=== PATIENT | female | born 1960 | race African-American/Black ===

== ENCOUNTER → 2016-10-03 | Outpatient (CLI) | payer OTHER, MEDICAID ==
[2016-10-03 10:04] LABS: Urine RBC None Seen /hpf (0 - 4)
[2016-10-03 10:11] LABS: Basophils # (auto) 0 uL; Basophils % (auto) 0.3 % (0.0-2.0); DEFINITIVE VIEW TRANSMISSION; Eosinophils # (auto) 0.2 uL; Hematocrit 46.6 % (36.0-46.0); Hemoglobin 14.6 g/dL (12.2-16.2); Lymphocytes % (auto) 27.4 % (10.0-50.0); Mean Corpuscular Hemoglobin 26.4 pg (28.0-32.0); Mean Corpuscular Hgb Conc. 31.3 g/dL (32.0-36.0); Mean Corpuscular Volume 84.4 fL (80.0-100.0); Mean Platelet Volume 9.9 fL (7.4-10.4); Monocytes # (auto) 0.4 uL; Monocytes % (auto) 5.2 % (0.0-12.0); Neutrophils # (auto) 4.8 uL; Neutrophils % (auto) 64.1 % (37.0-80.0); Platelet Count (auto) 193 10^3/uL (140-450); Red Cell Distribution Width 14.7 % (11.6-16.0); White Blood Cell 7.4 10^3/uL (4.4-10.8)
[2016-10-03 10:53] LABS: Urine Bilirubin Negative (Negative); Urine Blood Negative /uL (Negative); Urine Color Yellow (Yellow); Urine Ketone Negative (Negative); Urine Nitrite Negative (Negative); Urine Squamous Epithelial Cell FEW /hpf (<5); Urine Urobilinogen Normal (Negative); Urine pH 6.5 (5.0-8.0)
[2016-10-03 10:58] LABS: Urine Glucose 4+ mg/dL (Normal)
[2016-10-03 13:54] LABS: Potassium 4.3 mmol/L (3.5-5.1)
[2016-10-03 14:12] LABS: Albumin 3.6 g/dL (3.4-5.0); BUN/Creatinine Ratio 10.7
[2016-10-03 14:40] LABS: Bilirubin, Total 0.6 mg/dL (0.2-1.0); Total Protein 7.4 g/dL (6.4-8.2)
== END | disposition home or self-care (01) ==
LOC: LAB 08:58
DX: I87.9 Disorder of vein, unspecified (principal)
CPT/HCPCS: 36415; 80053; 80061; 81001; 82306; 85025

== ENCOUNTER → 2019-11-19 | Outpatient (CLI) | payer OTHER, MEDICAID | END | disposition home or self-care (01) | LOC: Rad HDHVI 14:43 | PROVIDERS: ATTEND Internal Medicine | DX: I36.1 Nonrheumatic tricuspid (valve) insufficiency (principal) | CPT/HCPCS: 93306 ==

== ENCOUNTER → 2019-11-23 | Outpatient (CLI) | payer OTHER, MEDICAID ==
[~2019-11-23] VITALS: Ht 170.2 cm; Wt 124.7 kg
[~2019-11-23] MED LIST: ADENOSINE 105 MG in GIVE UN-DILUTED 0 ML IV ONE; ADENOSINE 90 MG/30 ML INJ IV ONE
== END | disposition home or self-care (01) ==
LOC: Rad HDHVI 08:29
PROVIDERS: ATTEND Internal Medicine Cardiovascular Disease
DX: I36.1 Nonrheumatic tricuspid (valve) insufficiency (principal); K21.9 Gastro-esophageal reflux disease without esophagitis; E03.9 Hypothyroidism, unspecified; G43.909 Migraine, unspecified, not intractable, without status migrainosus; K40.90 Unilateral inguinal hernia, without obstruction or gangrene, not specified as recurrent; R42 Dizziness and giddiness; E11.9 Type 2 diabetes mellitus without complications
CPT/HCPCS: 78452; 93005; 96374; 96375; A9500; J0153

== ENCOUNTER → 2024-12-14 | Outpatient (CLI) | payer OTHER, MEDICAID | END | disposition home or self-care (01) | LOC: RT 13:49 | PROVIDERS: ATTEND Internal Medicine Pulmonary Disease | DX: J45.50 Severe persistent asthma, uncomplicated (principal); R05.3 Chronic cough; R06.00 Dyspnea, unspecified; Z87.891 Personal history of nicotine dependence; Z79.51 Long term (current) use of inhaled steroids | CPT/HCPCS: 94060; 94727; 94729 ==

== ENCOUNTER 2025-05-21 06:46 | Day surgery (SDC) | payer OTHER, MEDICAID ==
[~2025-05-21] VITALS: Ht 172.7 cm; Wt 120.2 kg
[2025-05-21] VITALS (8 sets, daily range): BP systolic 111–135; BP diastolic 62–79; PULSE 74–91; RESP 12–18; O2SAT 94–97
[~2025-05-21 06:46] MED LIST changes: -ADENOSINE 105 MG in GIVE UN-DILUTED 0 ML IV ONE; -ADENOSINE 90 MG/30 ML INJ IV ONE; +AMLO1TAB22 PO; +ASPI-498 OR; +CHOL20007 OR; +CLOB0.059 TOP; +LEVO137T3 PO; +METF-370 PO; +PANT40TA2 PO; +TOPI25CA5 PO
[2025-05-21] MEDS ORDERED: IODIXANOL 320MG/ML 100ML BTL IV ONE (06:47)
[2025-05-21] MEDS: HEPARIN SODIUM (PORCINE) 5000 UNITS/ML 1ML VIAL ONE (08:21)
[2025-05-21] MEDS: LIDOCAINE 2%HCL (LOCAL ANESTH.) INJ 20ML MDV ONE (08:21)
[2025-05-21] MEDS: VERAPAMIL 2.5MG/ML INJ 2ML VIAL IV ONE (08:21)
[2025-05-21] MEDS: SODIUM CHL 0.9% 0 ML ONE (08:21)
[2025-05-21] MEDS: ANGIOMAX 250 MG VIAL IV ONE (08:21)
[2025-05-21] MEDS: fentaNYL CITRATE 100 MCG/2 ML VL ONE (08:32)
[2025-05-21] MEDS: MIDAZOLAM HCL 2MG/2ML 2ml VIAL (1mg/ml) ONE (08:33)
--- NOTE | 2025-05-21 09:40 | DVHOP2 ---
Operative Report Procedures performed: Left heart catheterization and bilateral coronary angiogram Moderate sedation Diagnosis: Nonobstructive coronary artery disease (minimal luminal irregularities throughout coronary system) LVEF of 65% with mildly increased LVEDP (17 mm Hg) Cardiac suggestion for management: Optimized medical therapy Lifestyle and risk factor modifications Findings: LVEF: 65% LVEDP: 17 mm Hg There was no transaortic valve pressure gradient Left main: Left main was coming off the left sinus of Valsalva. It was free of disease. Ramus intermedius: Ramus intermedius was a large caliber, trifurcating vessel with minor luminal irregularities which came off the left main. LAD: LAD came off the left main. It provided very small-caliber diagonals. LAD throughout its course and branches had minimal luminal irregularities. LCX: LCX was coming off the left main. It provided a medium-sized OM1. LCX throughout its course and branches was free of disease. RCA: RCA was coming off the right sinus of Valsalva. It was a dominant vessel and provided RPDA/RPLS. RCA throughout its course and branches had minor luminal irregularities. Presentation: Patient is a 65-year-old female who presented to the office with occasional chest discomfort. Past medical history includes diabetes mellitus, hypertension, GERD, chronic pain syndrome, migraine, fatty liver, hypothyroidism, status post bilateral knee surgery/tonsillectomy/cholecystectomy/partial hysterectomy and carpal tunnel surgery. Does have positive family history for coronary artery disease. Echocardiogram of December 2024 revealed ejection fraction of 65-70%, mild concentric left ventricular hypertrophy, no mitral regurgitation, trace TR, mild aortic insufficiency and right ventricular systolic pressure of less than 35 mm Hg. Nuclear stress test of December 2024 was abnormal and the patient was sent for cardiac catheterization. Procedure: After obtaining informed consent, the patient was brought to the geochemical laboratory technician. She was prepped and draped in sterile fashion. Right radial artery was used for access site. 1 mg of Versed and 50 mcg of fentanyl were used for moderate sedation. Using Seldinger technique, the right radial artery was accessed and a 6 [place] slender sheath was inserted into it. 2.5 mg of verapamil and 100 mcg of nitroglycerin were given as a cocktail into right radia l sheath. 5000 units of heparin was given peripherally. A 5 Argentine tiger 4 diagnostic catheter was used to perform left heart catheterization (obtaining pressures and performing left ventriculography) and bilateral coronary angiography. There was no indication for any transcatheter revascularization. Total bleeding was less than 5 mL. There was no dissection/hematoma/perforati on. Patient tolerated the procedure with no complication. Right radial artery access site was managed by deploying a TR band. Fluoroscopy time: 5.1 minutes contrast: 55 mL of [place] JHONATAN LLANES MD May 21, 2025 09:40
== END 2025-05-21 11:50 | disposition home or self-care (01) ==
LOC: CATH 06:46
PROVIDERS: ATTEND Internal Medicine Cardiovascular Disease
DX: R94.39 Abnormal result of other cardiovascular function study (principal); I25.10 Atherosclerotic heart disease of native coronary artery without angina pectoris; K21.9 Gastro-esophageal reflux disease without esophagitis; I10 Essential (primary) hypertension; E11.9 Type 2 diabetes mellitus without complications; E03.9 Hypothyroidism, unspecified; G43.909 Migraine, unspecified, not intractable, without status migrainosus; E78.5 Hyperlipidemia, unspecified; G89.4 Chronic pain syndrome; Z90.49 Acquired absence of other specified parts of digestive tract; Z98.890 Other specified postprocedural states; Z96.653 Presence of artificial knee joint, bilateral; Z90.710 Acquired absence of both cervix and uterus; Z79.899 Other long term (current) drug therapy; Z82.49 Family history of ischemic heart disease and other diseases of the circulatory system; Z88.5 Allergy status to narcotic agent; Z79.82 Long term (current) use of aspirin; Z79.890 Hormone replacement therapy; Z79.84 Long term (current) use of oral hypoglycemic drugs; Z87.891 Personal history of nicotine dependence
CPT/HCPCS: 93458; C1769; C1894; J1644; J2250; J3010; J7030; Q9967; 99152

== ENCOUNTER 2025-06-05 14:06 | Emergency (ER) | payer OTHER, MEDICAID ==
[~2025-06-05] VITALS: Ht 172.7 cm; Wt 119.8 kg
[2025-06-05 14:07] VITALS: TEMP 97.5
--- NOTE | 2025-06-05 15:36 | ED.PDOC ---
History of Present Illness(SKN HPI Comments 65 y.o severely morbidly obese female presents to the ED for an evaluation of an abscess to the right scapular region x January 2025 after being bitten by a spider. Patient reports pus discharge when spider bite was noted, now has improved but states having pain to that region radiating up into her neck. No current discharge reported, but the patient has a dime sized mass in the area. Patient denies any fever nausea or vomiting. Patient was hypertensive at arrival. Chief Complaint: Insect Bite Time Seen by MD: 15:00 History of Present Illness: Nurses Notes, Medications, Allergies Allergies: Coded Allergies: Hydrocodone (Verified Allergy, Severe, vomiting, 05/17/25) Home Meds Active Scripts Acetaminophen (Acetaminophen) 500 Mg Tab, 500 MG PO Q4HP PRN, #20 TAB Prov:JHONATAN MACIAS PAC 06/05/25 Clonidine Hydrochloride (Clonidine Hcl) 0.2 Mg Tab, 1 TAB PO Q12HP PRN, #10 TAB 0 Refills To be used if systolic pressure is above 160 or diastolic pressure is above 90. Prov:JHONATAN MACIAS PAC 06/05/25 Cephalexin (KEFLEX CAPSULE) 250 Mg Cp, 1 CAP PO QID for 5 Days, #20 CAP Prov:JHONATAN MACIAS PAC 06/05/25 Reported Medications Pantoprazole Sodium Sesquihydr (Protonix) 40 Mg Tab, 40 MG PO DAILY 05/17/25 Cholecalciferol (VITAMIN D3) 2,000 Unit Tab, 50 MCG OR DAILY, TAB 05/17/25 Clobetasol Propionate (Clobetasol Propionate) 0.05 % [place], 1 APPLIC TOP QPM 05/17/25 Amlodipine Besylate (Amlodipine Besylate) 5 Mg Tab, 5 MG PO DAILY 05/17/25 Topiramate (Topiramate) 25 Mg Cap, 25 MG PO DAILYPRN for migraine 05/17/25 Levothyroxine Sodium (Levothyroxine Sodium) 137 Mcg Tab, 137 MCG PO QAM 05/17/25 Metformin Hydrochloride (Metformin Hcl) 500 Mg Tab, 500 MG PO IBID 05/17/25 Aspirin (ASPIRIN 81) 81 Mg Tab, 81 MG OR DAILY, TAB 05/17/25 Information Source: Patient Mode of Arrival: Ambulatory Severity: Moderate Timing: Months Duration: Since onset Prehospital treatment: None Location: Back, Other Mechanism: Spider Object: None Condition of Object: None Wound Type: Abscess Tetanus: >5 Years History of: Diabetes Associated Signs and Symptoms: Redness, Swelling, Pain Past Medical History PAST MEDICAL HISTORY: DM, HTN, Denies Surgical History: Denies all surgeries ARCHITECT History: No Pertinent ARCHITECT History Family History Family History: Reviewed,noncontributory to illness Social History Smoker: Non-Smoker Alcohol: Denies ETOH Use Drugs: Denies Drug Use Lives In: Home Constitutional: denies: chills, diaphoresis, fatigue, fever, malaise, sweats, weakness, others EENTM: denies: blurred vision, double vision, ear bleeding, ear discharge, ear drainage, ear pain, ear ringing, eye pain, eye redness, hearing loss, mouth pain, mouth swelling, nasal discharge, nose bleeding, nose congestion, nose pain, photophobia, tearing, throat pain, throat swelling, voice changes, others Respiratory: denies: cough, hemoptysis, orthopnea, SOB at rest, shortness of breath, SOB with excertion, stridor, wheezing, others Cardiovascular: denies: chest pain, dizzy spells, diaphoresis, Dyspnea on exertion, edema, irregular heart beat, left arm pain, lightheadedness, palpitations, PND, syncope, others Gastrointestinal: denies: abdomen distended, abdominal pain, blood streaked bowels, constipated, diarrhea, dysphagia, difficulty swallowing, hematemesis, melena, nausea, poor appetite, poor fluid intake, rectal bleeding, rectal pain, vomiting, others Genitourinary: denies: abnormal vagina bleeding, burning, dyspareunia, dysuria, flank pain, frequency, hematuria, incontinence, pain, , vagina discharge, urgency, others Neurological: denies: dizziness, fainting, headache, left sided numbness, left sided weakness, numbness, paresthesia, pre-existing deficit, right sided numbness, right sided weakness, seizure, speech problems, tingling, tremors, weakness, others Musculoskeletal: denies: back pain, gout, joint pain, joint swelling, muscle pain, muscle stiffness, neck pain, others Integumetry: reports: others (right scapular abscess ); denies: bruises, change in color, change in hair/nails, dryness, laceration, lesions, lumps, rash, wounds Allergic/Immunocompromised: denies: Difficulty Healing, Frequent Infections, Hives, Itching, others Hematologic/Lymphatic: denies: anemia, blood clots, easy bleeding, easy bruising, swollen glands, others Endocrine: denies: excessive hunger, excessive sweating, excessive thirst, excessive urination, flushing, intolerance to cold, intolerance to heat, unexplained weight gain, unexplained weight loss, others Psychiatric: denies: anxiety, bipolar disorder, depression, hopeless, panic disorder, schizophrenia, sleepless, suicidal, others All Other Systems: Reviewed and Negative Physical Exam General Appearance: Moderate Distress ([id number] distress due to the right scapular abscess.), Normal HEENT: Normal ENT Inspection, Pharynx Normal, TMs Normal Neck: Full Range of Motion, Non-Tender, Normal, Normal Inspection Respiratory: Chest Non-Tender, Lungs Clear, No Accessory Muscle Use, No Respiratory Distress, Normal Breath Sounds Cardiovascular: No Edema, No JVD, No Murmur, No Gallop, Normal Peripheral Pulses, Regular Rate/Rhythm Breast Exam: Deferred Gastrointestinal: No Organomegaly, Non Tender, No Pulsatile Mass, Normal Bowel Sounds, Soft Genitalia: Deferred Pelvic: Deferred Rectal: Deferred Extremities: No calf tenderness, Normal capillary refill, Normal inspection, Normal range of motion, Non-tender, No pedal edema Neurologic: Alert Cerebellar Function: NOT DONE Reflexes: Other (Dime-sized coalesced and hardened abscess appreciated in the right scapular region. Localized edema without definitive erythema.), NOT DONE Skin: Dry, Normal Color, Warm Lymphatic: No Adenopathy Was a procedure done? Was a procedure done?: Yes Sedation Sedation?: No Other Procedure Notes 1 cc of 1% lidocaine was utilized for local anesthesia. An incision was made with a 11 blade over the abscess. A large pea sized complete pod was ejected and removed. Patient tolerated procedure well. Clean dressing applied. Differential Diagnosis (INTG) Differential Diagnosis: Insect Envenomation Abscess: Abscess X-Ray, Labs, Meds, VS Vital Signs Date Time Temp Pulse Resp B/P (MAP) Pulse Ox O2 Delivery O2 Flow Rate FiO2 06/05/25 16:19 150/84 06/05/25 16:17 74 18 150/84 (106) 100 06/05/25 16:17 74 18 100 Room Air 06/05/25 14:07 97.5 86 18 193/94 99 97.5 X-Ray, Labs, Meds, VS Comment Patient tolerated I and D procedure well. Advised patient utilize antibiotics for the next few days and pain medication as needed. Additionally, advised patient to follow up with the primary care provider for discussions related to what is currently poorly controlled hypertension. Patient's blood pressure was returned to an acceptable zone prior to discharge. Time of 1ST Reevaluation: 15:59 Reevaluation 1ST: Improved Consultation: PCP Patient Education/Counseling: Diagnosis, Treatment, Prognosis Family Education/Counseling: Diagnosis, Treatment, No Family Present SEPSIS Sepsis Screen Date sepsis recognized/suspect: Jun 05, 2025 Time Sepsis recognized/suspect: 1411 Recent Procedure: No On Antibiotic Therapy: No Respiratory Rate >20: No Heart Rate >90: No Temp<36 C (96.8 F) or >38.3 C: No SBP <90 or MAP <65 mmHG: No New Acute Mental Status Change: No Is the patient on CPAP, BIPAP,: No Vital Signs Date Time Temp Pulse Resp B/P (MAP) Pulse Ox O2 Delivery O2 Flow Rate FiO2 06/05/25 16:19 150/84 06/05/25 16:17 74 18 150/84 (106) 100 06/05/25 16:17 74 18 100 Room Air 06/05/25 14:07 97.5 86 18 193/94 99 97.5 Departure 1 Departure Time of Disposition: 15:59 Impression: Primary Impression: Abscess Additional Impressions: Encounter for incision and drainage procedure Hypertensive urgency Disposition: 01 HOME / SELF CARE / HOMELESS Condition: Stable Additional Instructions: Advised patient utilize antibiotics as directed until completion as well as blood pressure medication as needed. Patient needs to follow up with the primary care provider for discussions related to what is currently poorly controlled hypertension and medication needed to improve blood pressure issues. e-Prescriptions Acetaminophen (Acetaminophen) 500 Mg Tab 500 MG PO Q4HP PRN, #20 TAB Prov: JHONATAN MACIAS PAC 06/05/25 Clonidine Hydrochloride (Clonidine Hcl) 0.2 Mg Tab 1 TAB PO Q12HP PRN, #10 TAB 0 Refills To be used if systolic pressure is above 160 or diastolic pressure is above 90. Prov: JHONATAN MACIAS PAC 06/05/25 Cephalexin (KEFLEX CAPSULE) 250 Mg Cp 1 CAP PO QID for 5 Days, #20 CAP Prov: JHONATAN MACIAS PAC 06/05/25 Discharged With: Self, Friend Critical Care Note Critical Care Time?: No Stability Stability form required: No I personally scribed for JHONATAN MACIAS PAC ([email or web address]) on 06/05/25 at 15:36. Electronically submitted by Anahi Saldivar ([facility]). JHONATAN MACIAS PAC Jun 05, 2025 15:36
[2025-06-05] MEDS ORDERED: ACET500T58 PO (16:01)
[2025-06-05] MEDS ORDERED: CLON0.2T PO (16:01)
[2025-06-05] MEDS ORDERED: CEPH250C PO (16:01)
[2025-06-05 16:17] VITALS: BP 150/84; PULSE 74; RESP 18; O2SAT 100
[2025-06-05] MEDS: TETANUS-DIPTH-ACEL PERTUSSIS 0.5ML SYR Tdap IM ONE (16:24)
== END 2025-06-05 16:28 | disposition home or self-care (01) ==
LOC: ER 14:08
DX: L02.91 Cutaneous abscess, unspecified (principal); I16.0 Hypertensive urgency; E11.9 Type 2 diabetes mellitus without complications; I10 Essential (primary) hypertension; Z79.899 Other long term (current) drug therapy; Z88.5 Allergy status to narcotic agent
CPT/HCPCS: 10060; 90471; 90715